=== PATIENT | female | born 1945 | race Caucasian/White ===

== ENCOUNTER 2025-03-04 11:07 | Day surgery (SDC) | payer OTHER ==
[2025-03-02 15:42] LABS: Absolute Basophils 0.1 K/uL (0-0.5); Absolute Eosinophils 0.3 K/uL (0-0.5); Absolute Lymphocytes (CBC) 2.6 K/uL (0.7-4.9); Absolute Monocytes 0.5 K/uL (0.1-1.3); Absolute Neutrophil 5.2 K/uL (1.8-8.0); Basophils % 0.8 % (0-1.3); Eosinophils % 3.3 % (0-4.4); Hematocrit 42.6 % (36.0-45.0); Hemoglobin 14.7 g/dL (12.0-15.0); MCH 29.8 pg (27.0-35.0); MCHC 34.4 g/dL (32.0-36.0); MCV 86.4 fL (80-100); MPV 8.3 fL (7.6-11.3); Monocytes % 5.8 % (3.3-12.3); Neutrophils % 60.1 % (41.7-73.7); Nucleated Red Blood Cells % 0.1 % (0-0); Platelets 305 thou/uL (152-406); RBC Red Blood Cell Count 4.93 M/uL (3.86-4.86); Red Cell Distribution Width 14.9 % (12.1-15.2)
[2025-03-02 16:03] LABS: Anion Gap 9.2 mEq/L (5.0-15.0); Potassium 4.2 mEq/L (3.5-5.1)
[2025-03-04] MEDS: NA CHLORIDE 0.9% 1,000 ML ONE (11:40)
[2025-03-04] MEDS ORDERED: LIDOCAINE 2% MPF 5 ML VIAL ONE (12:55)
[2025-03-04] MEDS ORDERED: ONDANSETRON 4 MG/2 ML VIAL ONE (12:55)
[2025-03-04] MEDS ORDERED: FENTANYL CITR 100 MCG/2 ML ONE (12:55)
[2025-03-04] MEDS ORDERED: propofoL 200 MG/20 ML VIAL IV ONE (12:55)
[2025-03-04] MEDS ORDERED: dexAMETHasone 10 MG/ML VIAL ONE (13:20)
[2025-03-04] MEDS ORDERED: GLYCOPYRROLATE 0.2 MG/ML SYR ONE (13:24)
[2025-03-04] MEDS: CEFAZOLIN SODIUM 2 GM/VIAL ONE (13:25)
[2025-03-04] MEDS ORDERED: EPHEDRINE SULF 50 MG/ML VIAL ONE (13:30)
[2025-03-04] MEDS: LIDOCAINE HCL/EPINEPHRINE 20 ML MDV ONE (13:40)
--- NOTE | 2025-03-04 14:21 | P.OP ---
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
[2025-03-04] MEDS: FENTANYL CITR 100 MCG/2 ML ONE (15:06)
[2025-03-04] MEDS: HYDROMORPHONE HCL 0.5 MG/0.5 ML INJ ONE (15:14)
[2025-03-04 16:29] VITALS: BP 146/58; TEMP 97.5; O2SAT 97
== END 2025-03-04 16:22 | disposition home or self-care (01) ==
LOC: OR 11:07
PROVIDERS: ATTEND Surgery
PROC: 0JB00ZZ Excision of Scalp Subcutaneous Tissue and Fascia, Open Approach (ICD-10-PCS; principal; 2025-03-04 13:00)
DX: C44.42 Squamous cell carcinoma of skin of scalp and neck (principal); R23.8 Other skin changes; I10 Essential (primary) hypertension; E11.9 Type 2 diabetes mellitus without complications; J44.9 Chronic obstructive pulmonary disease, unspecified
CPT/HCPCS: 11624; 93005; 85025; 80048; 36415; 82947 ×2; 88305; J2704; J2003; J3010 ×2; J1100; J1171; J2405; J7030